=== PATIENT | female | born 1990 | race Caucasian/White ===

== ENCOUNTER 2016-11-17 07:06 | Inpatient (IN) | payer OTHER ==
[2016-11-17] MEDS ORDERED: IV START KIT ONE (07:33)
--- NOTE | 2016-11-17 07:33 | PCMAN ---
OB Admission Note - History : 4 Term: 1 Abortions (S&E): 2 Livin EDC:: 12/07/16 Gestational Age (weeks): 37 Days (#/7): 1 Admit Cervical Dilation:: 1 Admit Cervical Effacement (%):: 30 Admit Station:: -3 Admit Presentaton:: cephalic Membrane Status: Intact Contractions: No Heart Rate:: 160 Status:: reactive EFW:: 3000 Summary of Course:: 26yo at 37+1, colin 12/07/16 c/w LMP had u/s at 11+1, colin 12/04/16 - c/w LMP h/o ASCUS on pap had contractions and pos fFN at 28w, pt received betamethasone course, cervical length was subsequently followed and normal h/o PIH previous and was induced at 38w had sciatic and RUQ pain this , had PT visits Pt was seen at 34w with high blood pressure 140/100 and was admitted for evaluation, BP 130-140/90's in hospital. Subsequently also had BP 140/98 in a following visit. No proteinuria. Last week BP 132/80. - Labs Blood Type: A (+) positive Rubella Status: Immune GBS Status: Negative - Physical Exam General: Afebrile Psych/Mental Status: Mood/Affect Appropriate Lungs: Clear to Auscultation Bilaterally Cardiovascular: Regular Rate and Rhythm Abdomen: Other (efw = 3000g) Genitourinary: Normal Female Genitalia, Other (cx=12/01/-4) Extremities: Edema (trace), No Tenderness DTR: Patellar (L): 1+ (Slightly diminished), Patellar (R): 1+ (Slightly diminished) - Additional Comments 26yo at 37+1 induction for induced hypertension considering pt has had elevated BP, with no proteinuria, also pt has had h/o PIH prior , induction is appropriate at this time. Indication for induction reviewed. Risks for induction has been reviewed including - c/section, hyperstimulation, infection chk PIH labs pt will need cervical ripening with misoprostol - 25mcg PV q4h
[2016-11-17] MEDS ORDERED: LACTATED RINGERS 1,000 ML ONE (07:34)
[2016-11-17 08:20] LABS: ABSOLUTE NEUTROPHIL COUNT 6.7 K/mm3 (1.8-7.7); BASO # 0.1 K/mm3 (0.0-0.2); BASO % 0.6 % (0.2-1.0); EOS # 0.1 (0.0-0.5); EOS % 1.3 % (0.9-2.9); HEMATOCRIT 35.8 % (37.0-47.0); HEMOGLOBIN 11.8 gm/l (12.0-16.0); IMM NEUT # 0.2 K/mm3 (0-0.2); IMM NEUT% 2.2 % (0-1); LYMPH # 2.4 (1.0-4.8); LYMPH % 22.9 % (15-45); MEAN CELL VOLUME 85.2 fl (81.0-99.0); MEAN CORPUSCULAR HEMOGLOBIN 28.1 pg (27.0-31.0); MEAN PLATELET VOLUME 10.5 fl (7.4-10.4); MONO # 0.9 (0.0-0.8); MONO % 8.3 % (4-12); NEUT % 64.7 % (43-75); PLATELET COUNT 240 K/mm3 (130-400); RED CELL DISTRIBUTION WIDTH 13.8 % (11.5-14.5)
[2016-11-17 08:42] VITALS: BMI 38.9
[2016-11-17 08:56] LABS: ALBUMIN 3.2 gm/dL (3.5-5.7); CALCIUM 9.1 mg/dL (8.6-10.3); URIC ACID 4.6 mg/dL (2.3-7.6)
[2016-11-17] MEDS ORDERED: LIDOCAINE Viscous 2% 15 ML UDCUP ONE (09:02)
[2016-11-17] MEDS ORDERED: OXYTOCIN 10 UNITS/ML VIAL ONE (09:02)
[2016-11-17] MEDS ORDERED: MINERAL OIL 25 ML BOT ONE (09:02)
[2016-11-17] MEDS ORDERED: LIDOCAINE 1% (PRES FREE) 30 ML VIAL ONE (09:02)
[2016-11-17] MEDS ORDERED: OXYTOCIN IN LR 0 ML IV ONE (09:03)
[2016-11-17] MEDS ORDERED: PUMP TUBING ONE ×2 (09:03→22:22)
[2016-11-17] MEDS: MISOPROSTOL 25 MCG TABLET VG SCH ×4 (09:05→22:33)
--- NOTE | 2016-11-17 09:31 | PDOC36 ---
Provider Note Subject: intrapartum note Note: FHT: 160's, mod funmi, reactive, no decels cx=12/01/-3 confirmed cephalic presentation misoprostol 25mcg placed PV
[2016-11-17] MEDS ORDERED: ZOLPIDEM TARTRATE 5 MG TABLET PO PRN (17:53)
[2016-11-17] MEDS ORDERED: LACTATED RINGERS 500 ML IV ONE (20:15)
[2016-11-17] MEDS: LACTATED RINGERS 1,000 ML IV SCH ×2 (20:33→22:48)
[2016-11-17] MEDS: OXYTOCIN IN LR 500 ML IV PRN ×2 (22:48→23:54)
[2016-11-17] MEDS ORDERED: OXYTOCIN IN LR 500 ML IV ONE (23:20)
[2016-11-18] MEDS: OXYTOCIN IN LR 500 ML IV PRN ×4 (01:18→20:14)
[2016-11-18] MEDS: LACTATED RINGERS 1,000 ML IV SCH ×3 (10:21→18:42)
[2016-11-18] MEDS ORDERED: LACTATED RINGERS 1,000 ML IV SCH (15:47)
[2016-11-18] MEDS ORDERED: EPHEDRINE SULFATE 50 MG/ML 1ML VIAL IV PRN (15:47)
[2016-11-18] MEDS ORDERED: NALBUPHINE HCL 20 MG/ML AMP IV PRN (15:47)
[2016-11-18] MEDS ORDERED: FENTANYL/ROPIVACAINE EPIDURAL 250 ML EP SCH (15:47)
[2016-11-18] MEDS ORDERED: NALOXONE HCL 0.4 MG/ML VIAL IV PRN (15:47)
[2016-11-18] MEDS ORDERED: LACTATED RINGERS 500 ML IV PRN (15:47)
[2016-11-18] MEDS ORDERED: ONDANSETRON 4 MG/2ML 2 ML VIAL IV PRN (15:47)
[2016-11-18] MEDS ORDERED: DIPHENHYDRAMINE HCL 50 MG/1 ML VIAL IV PRN (15:47)
[2016-11-18] MEDS ORDERED: METOCLOPRAMIDE HCL 5 MG/ML 2ML VIAL IV PRN (15:47)
[2016-11-18] MEDS ORDERED: SODIUM CHLORIDE 0.9% 500 ML IV PRN (15:47)
--- NOTE | 2016-11-18 16:54 | PDOC36 ---
Provider Note Subject: AROM clear Note: S: pt still feeling contrx low, mostly in front. A bit stronger than before. O: VS stable , pitocin 11mu/mn Contractions q 2-4 mins FH 130's category 1, but hard to trace due to body habitus. VE: cervix soft, midplane to anterior, 90%, 3cm but not stretchy, vertex -2 station EFW 7.5lbs Imp: Still in early labor, but more favorable than earlier. Options discussed including trying a Cook balloon. Pt choosing AROM, not balloon. Risks/benefits reviewed. AROM performed without difficulty yielding clear fluid. Plan: expectant; continue pitocin.
--- NOTE | 2016-11-18 17:05 | PDOC36 ---
Provider Note Subject: Progress note Note: Pt has had a shower and eaten breakfast. She feels ready to get serious, motivated to have baby today. Chart reviewed: 26yo para 1, being induced for PIH since yesterday morning. Misoprostol ripening, followed by low dose pitocin all night. GBS negative. course reviewed, including some PTL with pos FFN, pt given beta methasone at 28 weeks. 1HGTT was 101. Exam EFW 7 lb cephalic. cervix soft midplane, 3cm, 80%, getting stretchy Vertex applied at -2 station. Imp: Induction of labor for PIH at 37 weeks. Plan Pitocin induction of labor. Restart and increase by 2 till in good labor.
[2016-11-18] MEDS ORDERED: EPIDURAL PUMP SET ONE (17:14)
[2016-11-18] MEDS ORDERED: FENTANYL/ROPIVACAINE EPIDURAL 250 ML EP ONE (17:15)
--- NOTE | 2016-11-18 17:24 | PDOC36 ---
Provider Note Note: Contractions stronger and q2-3 min FH stable, FSE placed without difficulty. Pt requesting epidural narcotics. Indeed cervix is now 4cm and stretchier. Imp: Active labor Plan: Epidural.
[2016-11-18] MEDS ORDERED: EPIDURAL PROCEDURE TRAY ONE (18:43)
[2016-11-18] MEDS ORDERED: ROPIVACAINE 0.5% 30 ML VIAL ONE (19:01)
[2016-11-18] MEDS ORDERED: DIPHTH,PERTUSS(ACELL),TET VAC 0.5 ML VIAL IM V ONE (23:47)
[2016-11-18] MEDS ORDERED: SENNOSIDES 8.6 MG TABLET PO PRN (23:47)
[2016-11-18] MEDS ORDERED: BENZOCAINE/MENTHOL 60 APPLIC/BOT TP PRN (23:47)
[2016-11-18] MEDS ORDERED: OXYCODONE HCL 5 MG TABLET PO PRN (23:47)
[2016-11-18] MEDS ORDERED: LACTATED RINGERS 1,000 ML IV PRN (23:47)
[2016-11-18] MEDS ORDERED: CALCIUM CARBONATE 500 MG TAB.CHEW PO PRN (23:47)
[2016-11-18] MEDS ORDERED: LANOLIN 50 APPLIC/7G TUBE TP PRN (23:47)
[2016-11-18] MEDS ORDERED: ACETAMINOPHEN 325 MG TABLET PO PRN (23:47)
[2016-11-18] MEDS ORDERED: MEASLES,MUMPS&RUBELLA VACCINE 0.5 ML VIAL SUB-Q V ONE (23:47)
[2016-11-19] MEDS ORDERED: PNEUMOCOCCAL 23-VAL P-SAC VAC 0.5 ML VIAL IM V ONE (00:04)
[2016-11-19] MEDS: IBUPROFEN 800 MG TABLET PO PRN ×3 (03:13→20:31)
[2016-11-19 07:00] LABS: HEMATOCRIT 32.9 % (37.0-47.0); HEMOGLOBIN 11.1 gm/l (12.0-16.0); MEAN CELL VOLUME 84.6 fl (81.0-99.0); MEAN CORPUSCULAR HEMOGLOBIN 28.5 pg (27.0-31.0); MEAN CORPUSCULAR HGB CONC 33.7 g/dl (33.0-37.0); RED CELL DISTRIBUTION WIDTH 13.6 % (11.5-14.5)
--- NOTE | 2016-11-19 07:21 | PCMDEL ---
Delivery Note - Labor 1st stage (hr/min):: 6h 8min 2nd stage (hr/min):: 16min 3rd stage (hr/min):: 6min Total (hr/min):: 6h 30min Pushed (hr/min):: 16min - Delivery Delivery (Date): 11/18/16 Delivery (Time): 23:01 Infant Gender: Male Weight: 6 lb 4 oz Length: 1 ft 7 in Presentation: Cephalic Position: OA Umbilical Cord: 3 Vessel Delayed Cord Clamping:: < 1-2 min 1 Minute Total: 9 5 Minute Total: 9 Placenta:: complete. Pt started bleeding at about 2mins, so cord cut and pl delivered. EBL:: 300cc Perineum:: intact Suture:: N/A Anesthesia/Meds:: Epidural narcotics. Length ROM:: 6h 24min Comments:: At full dilation, pt had minimal urge to push. She was coached to push with contractions while in a reclining position. She insisted on no one elevating her legs, but was able to ease the head out VANNESA; shoulders delivered easily: Vigorous baby boy placed on maternal abdomen. Once pt began bleeding, cord was clamped and then cut by FOB. Placenta delivered without difficulty. No lacerations. Mother and baby did well in the new born period.
--- NOTE | 2016-11-19 07:32 | PDOC44 ---
- Subjective Day: 1 (Pt very pleased with ) Pt resting in bed. She has some mild back pain and general soreness, but is doing well. Reports Pain Tolerable, Reports (This is going well. Baby is learning well.), Reports Lochia Light - Objective Temp Pulse Resp BP Pulse Ox 97.2 F 72 18 150/70 11/19/16 03:10 11/19/16 03:10 11/19/16 03:10 11/19/16 03:10 Lab Results 11/19/16 06:15 WBC 14.1 H RBC 3.89 L Hgb 11.1 L Hct 32.9 L Plt Count 202 Current Medications Generic Name Dose Route Start Last Admin Trade Name Freq PRN Reason Stop Dose Admin Acetaminophen 325 - 650 mg 11/18/16 23:47 Tylenol PO Q4H PRN Pain (Mild) Benzocaine/Menthol 1 applic 11/18/16 23:47 Dermoplast TP PRN PRN Patient Comfort Calcium Carbonate/Glycine 500 - 1,000 mg 11/18/16 23:47 Tums PO BID PRN Indigestion Docusate Sodium 100 mg 11/18/16 23:47 Colace PO DAILY PRN Comfort Emollient Ointment 1 applic 11/18/16 23:47 [id number]-C-[id number] TP PRN PRN sore nipples Ropivacaine/Fentanyl/NS 250 mls @ 0 mls/hr 11/18/16 15:47 Fentanyl 2 Mcg/Ml + Ropivacaine 0.125% Ep Bag EP EPI KALEB Protocol Per Protocol Lactated Ringer's 1,000 mls @ 100 mls/hr 11/18/16 23:47 Lactated Ringers IV .Q10H PRN Titrate per clinical situation Ibuprofen 800 mg 11/18/16 23:47 11/19/16 03:13 Motrin PO 800 mg Q8H PRN Administration Pain (Mild) Oxycodone HCl 5 - 10 mg 11/18/16 23:47 Roxicodone PO Q3H PRN Pain (Severe) Oxycodone/Acetaminophen 1 - 2 tab 11/18/16 23:47 Percocet 5/325 PO Q4H PRN Pain (Moderate) Senna 17.2 mg 11/18/16 23:47 Senokot PO BEDTIME PRN Comfort Sodium Chloride 10 ml 11/18/16 23:47 Normal Saline 10ml Flush IV PRN PRN IV Flush - Physical Exam General: Afebrile Psych/Mental Status: Mood/Affect Appropriate, Bonding Well Neurological: Normal Speech Lungs: Clear to Auscultation Bilaterally Cardiovascular: Regular Rate and Rhythm Fundus: Firm, Below Umbilicus Abdomen: Normal Bowel Sounds Lochia: Light Skin: Normal Color, Warm, Dry - Problems:Assessment/Plan (1) (normal spontaneous vaginal delivery) Status: Acute (2) PIH ( induced hypertension) Status: Acute Disposition: Anticipate DC Home Tomorrow
[2016-11-19 07:35] LABS: ALB/GLOB RATIO 0.9 (>1.0); ALBUMIN 2.7 gm/dL (3.5-5.7)
[2016-11-19] MEDS: OXYCODONE/ACETAMINOPHEN 5/325 MG TABLET PO PRN ×2 (07:36→15:40)
[2016-11-19] MEDS: DOCUSATE SODIUM 100 MG CAPSULE PO PRN (08:24)
[2016-11-19] MEDS: METOCLOPRAMIDE HCL 10 MG TABLET PO PRN ×2 (09:43→21:09)
[2016-11-20] MEDS: OXYCODONE/ACETAMINOPHEN 5/325 MG TABLET PO PRN (00:09)
[2016-11-20] MEDS: IBUPROFEN 800 MG TABLET PO PRN (04:12)
--- NOTE | 2016-11-20 07:49 | PDOC39B ---
Hospital Course: ADMIT DATE: 11/17/16 DISCHARGE DATE: 11/20/16 ADMISSION DIAGNOSES: intrauterine at 37.1 weeks, induced hypertension PROCEDURES: cervical ripening with cytotec, induction of labor with pitocin, spontaneous vaginal delivery HISTORY OF PRESENT ILLNESS: 26 year old G4 T1 L1 at 37 weeks 2 days presenting with history of induced hypertension for induction of labor HOSPITAL COURSE: The patient had an uneventful post course. By day of discharge the patient is ambulating, eating, voiding, and passing flatus without difficulty. Pain is controlled and lochia is appropriate. She is [] - Physical Exam Vital Signs: Temp Pulse Resp BP Pulse Ox 97.7 F 79 16 111/65 11/20/16 02:15 11/20/16 02:15 11/20/16 02:15 11/20/16 02:15 General: Afebrile, No Acute Distress Psych/Mental Status: Mood/Affect Appropriate, Judgment/Insight Intact, Bonding Well Lungs: Clear to Auscultation Bilaterally, Normal Air Movement Breast: Soft, Skin intact, Nipples Intact, No Tenderness, No Erythema, No Engorged Fundus: Firm, Midline, At Umbilicus, Other (nontender) Genitourinary: Other (voiding without difficulty) Lochia: Light Extremities: No Tenderness Other Findings: patient requesting reglan rx for milk supplementation, used it with previous successfully - Discharge Plan Condition: Stable Disposition: Home Additional Instructions: nothing in vagina x 6 weeks, office visit with dr barron in 2 weeks. Prescriptions: Ibuprofen [Motrin] 800 mg PO Q8H PRN #30 tablet PRN Reason: Pain Metoclopramide HCl [Reglan] 10 mg PO ACBEDTIME PRN #30 tab PRN Reason: Nausea/Vomiting Metoclopramide HCl [Reglan] 10 mg PO TID #60 tablet
[2016-11-20 08:21] VITALS: BP 127/75
[2016-11-20] MEDS: DOCUSATE SODIUM 100 MG CAPSULE PO PRN (08:21)
[2016-11-20] MEDS ORDERED: DIPHTH,PERTUSS(ACELL),TET VAC 0.5 ML VIAL IM V ONE (09:11)
[2016-11-20] MEDS ORDERED: LACTATED RINGERS 1,000 ML ONE (23:23)
== END 2016-11-20 09:45 | disposition home or self-care (01) | DRG 775 ==
LOC: FBC 07:06 → EDSTATUS 12-07 15:48
PROVIDERS: ADMIT Obstetrics & Gynecology; ATTEND Obstetrics & Gynecology
PROC: 3E0P7GC Introduction of Other Therapeutic Substance into Female Reproductive, Via Natural or Artificial Opening (ICD-10-PCS; 2016-11-17)
PROC: 10907ZC Drainage of Amniotic Fluid, Therapeutic from Products of Conception, Via Natural or Artificial Opening (ICD-10-PCS; 2016-11-17)
PROC: 3E033VJ Introduction of Other Hormone into Peripheral Vein, Percutaneous Approach (ICD-10-PCS; 2016-11-17)
PROC: 10E0XZZ Delivery of Products of Conception, External Approach (ICD-10-PCS; principal; 2016-11-18)
DX: O13.4 Gestational [pregnancy-induced] hypertension without significant proteinuria, complicating childbirth (principal); Z3A.37 37 weeks gestation of pregnancy; Z37.0 Single live birth

== ENCOUNTER 2016-11-25 15:07 | Outpatient (CLI) | payer OTHER | END 2016-11-25 15:08 | disposition home or self-care (01) | LOC: BABIESSH 15:07 | PROVIDERS: ATTEND Obstetrics & Gynecology | DX: Z39.1 Encounter for care and examination of lactating mother (principal) ==